=== PATIENT | female | born 1995 | race Caucasian/White ===

== ENCOUNTER 2017-03-02 12:58 | Emergency (ER) | payer MEDICAID ==
[~2017-03-02] VITALS: Ht 160 cm; Wt 65.5 kg
[2017-03-02] MEDS ORDERED: LORA-446 PO (13:28)
[2017-03-02] MEDS ORDERED: SODIUM CHLORIDE 0.9% 1,000 ML IV ONE (13:50)
[2017-03-02] MEDS ORDERED: SODIUM CHLORIDE FLUSH 10ML SYR IVF ONE (14:00)
[2017-03-02] MEDS ORDERED: SODIUM CHLORIDE 0.9% 1,000ML IVBOLUS ONE (14:00)
[2017-03-02] MEDS ORDERED: ONDANSETRON 2MG/ML, 2ML IVPush ONE (14:00)
[2017-03-02] MEDS ORDERED: ONDANSETRON 2MG/ML, 2ML ONE (14:04)
[2017-03-02] MEDS ORDERED: MORPHINE SULFATE 4 MG/ML, 1ML ONE ×2 (14:04→15:45)
[2017-03-02 14:16] LABS: BASOPHILS # (AUTO) 0.01 x10^3/uL (0-0.1); BASOPHILS % (AUTO) 0 % (0-1); EOSINOPHILS % (AUTO) 0 % (1-7); LYMPHOCYTES # (AUTO) 0.71 x10^3/uL (1-3.4); LYMPHOCYTES % (AUTO) 6 % (22-44); MD NO; MEAN CORPUSCULAR HEMOGLOBIN 31.2 pg (27.0-34.8); MEAN CORPUSCULAR HGB CONC 33.8 g/dL (32.4-35.8); MEAN CORPUSCULAR VOLUME 92.3 fL (80-100); MEAN PLATELET VOLUME 8.9 fL (7.4-10.4); MONOCYTES # (AUTO) 0.77 x10^3/uL (0.2-0.8); MONOCYTES % (AUTO) 6 % (2-9); NEUTROPHILS % (AUTO) 88 % (42-75); PLATELET COUNT 188 x10^3/uL (130-400); RED BLOOD COUNT 5.09 x10^6/uL (3.82-5.3)
[2017-03-02] MEDS: MORPHINE SULFATE 4 MG/ML, 1ML IVPush PRN ×2 (14:17→15:49)
[2017-03-02 14:24] LABS: ALANINE AMINOTRANSFERASE 15 U/L (12-78); ALBUMIN 4.1 g/dL (3.4-5.0); ANION GAP 8 mmol/L (5-15); CALCIUM 8.7 mg/dL (8.5-10.1); CHLORIDE 103 mmol/L (98-107); CREATININE 0.95 mg/dL (0.55-1.02)
[2017-03-02 14:28] LABS: ALKALINE PHOSPHATASE 65 U/L (45-117); BILIRUBIN,TOTAL 0.6 mg/dL (0.2-1.0); TOTAL PROTEIN 8.3 g/dL (6.4-8.2)
[2017-03-02 14:47] LABS: RAPID INFLUENZA A Negative (Negative); RAPID INFLUENZA B Negative (Negative)
[2017-03-02 15:06] LABS: MICROSCOPIC INDICATED
[2017-03-02 15:26] LABS: CULTURE INDICATED? NO
[2017-03-02 16:57] LABS: GLUCOSE, CSF 52 mg/dL (40-80); TOTAL PROTEIN,CSF 31 mg/dL (15-45)
[2017-03-02] MEDS ORDERED: PROCHLORPERAZINE 5 MG/ML, 2ML ONE (17:52)
[2017-03-02] MEDS ORDERED: KETOROLAC 30 MG/1 ML ONE (17:53)
[2017-03-02] MEDS ORDERED: KETOROLAC 30 MG/1 ML IVPush ONE (18:00)
[2017-03-02] MEDS ORDERED: PROCHLORPERAZINE 5 MG/ML, 2ML IVPush ONE (18:00)
[2017-03-02 18:31] VITALS: BP 103/71
== END 2017-03-02 19:07 | disposition home or self-care (01) ==
LOC: ED 14:53
DX: G43.011 Migraine without aura, intractable, with status migrainosus (principal); F43.21 Adjustment disorder with depressed mood; R53.83 Other fatigue; E86.0 Dehydration; K52.9 Noninfective gastroenteritis and colitis, unspecified
CPT/HCPCS: 36415; 62270; 80053; 81001; 82945; 84157; 84703; 85025; 87070; 87205; 87252; 87400; 89051; 96361; 96374; 96375; 96376; 99284; J0780; J1885; J2405; J7030

== ENCOUNTER 2018-02-16 10:38 | Emergency (ER) | payer MEDICAID ==
[~2018-02-16] VITALS: Ht 160 cm; Wt 73.0 kg
[~2018-02-16 10:38] MED LIST: LORA-446 PO
[2018-02-16 10:41] VITALS: BP 136/86
[2018-02-16 11:50] LABS: BASOPHILS # (AUTO) 0.03 x10^3/uL (0-0.1); BASOPHILS % (AUTO) 1 % (0-1); EOSINOPHILS # (AUTO) 0.06 x10^3/uL (0-0.4); EOSINOPHILS % (AUTO) 1 % (1-7); LYMPHOCYTES # (AUTO) 1.76 x10^3/uL (1-3.4); LYMPHOCYTES % (AUTO) 24 % (22-44); MD NO; MEAN CORPUSCULAR HEMOGLOBIN 31.6 pg (27.0-34.8); MEAN CORPUSCULAR HGB CONC 34.1 g/dL (32.4-35.8); MEAN CORPUSCULAR VOLUME 92.6 fL (80-100); MEAN PLATELET VOLUME 8.2 fL (7.4-10.4); MONOCYTES # (AUTO) 0.42 x10^3/uL (0.2-0.8); MONOCYTES % (AUTO) 6 % (2-9); NEUTROPHILS # (AUTO) 4.97 x10^3/uL (1.8-6.8); NEUTROPHILS % (AUTO) 69 % (42-75); PLATELET COUNT 251 x10^3/uL (130-400); RED BLOOD COUNT 4.69 x10^6/uL (3.82-5.3); RED CELL DISTRIBUTION WIDTH 13.5 % (9.6-15.2)
[2018-02-16] MEDS ORDERED: DIPHENHYDRAMINE 50 MG/ML, 1ML ONE (11:59)
[2018-02-16] MEDS ORDERED: METOCLOPRAMIDE 5 MG/ML, 2ML IVPush ONE (12:00)
[2018-02-16] MEDS ORDERED: METOCLOPRAMIDE 5 MG/ML, 2ML ONE (12:00)
[2018-02-16] MEDS ORDERED: KETOROLAC 30 MG/1 ML IVPush ONE (12:00)
[2018-02-16] MEDS ORDERED: DIPHENHYDRAMINE 50 MG/ML, 1ML IVPush ONE (12:00)
[2018-02-16] MEDS ORDERED: KETOROLAC 30 MG/1 ML ONE (12:00)
[2018-02-16] MEDS ORDERED: SODIUM CHLORIDE 0.9% 1,000ML IVBOLUS ONE (12:00)
[2018-02-16 12:02] LABS: ALANINE AMINOTRANSFERASE 29 U/L (12-78); ANION GAP 5 mmol/L (5-15); CALCIUM 8.3 mg/dL (8.5-10.1); CHLORIDE 107 mmol/L (98-107); CREATININE 0.92 mg/dL (0.55-1.02)
--- NOTE | 2018-02-16 12:04 | NUR ---
ASSUMED CARE FROM VERITO CONNER
[2018-02-16 12:05] LABS: ACETAMINOPHEN 27 mcg/mL (10-30); ALKALINE PHOSPHATASE 55 U/L (45-117); BILIRUBIN,TOTAL 0.6 mg/dL (0.2-1.0); TOTAL PROTEIN 7.4 g/dL (6.4-8.2)
--- NOTE | 2018-02-16 12:16 | NUR ---
PT ARRIVES TO ED WITH SEVERE BOWDEN, PT REPORTS THAT SHE HAS HAD BOWDEN X 10 DAYS. PT REPORTS SHE HAD BEEN TAKENING "HEFTY DOSES" OF HOME MEDICATIOSN TO FEEL BETTER. PT CONNECTED TO MONITORS AND PIV PLACED AND MEDICATED PER EMAR. AWAITING FURTHER ORDERS.
[2018-02-16 12:30] LABS: HCG UR SG 1.028 (1.003-1.030); MICROSCOPIC NOT IND
[2018-02-16 13:00] LABS: CULTURE INDICATED? NO
== END 2018-02-16 13:59 | disposition home or self-care (01) ==
LOC: ED 11:57
DX: R51 Headache (principal)
CPT/HCPCS: 36415; 80053; 80307; 81003; 81025; 85025; 93005; 96374; 96375; 99284; J1200; J1885; J2765; J7030